=== PATIENT | male | born 1995 | race Caucasian/White ===

== ENCOUNTER 2022-01-06 20:22 | Emergency (ER) | payer OTHER ==
[2022-01-06] MEDS ORDERED: HYDROmorphone 1 MG/ML CARPUJECT IM STA (20:39)
--- NOTE | 2022-01-06 20:42 | ED Physician Documentation ---
History of Present Illness - Stated complaint Stated Complaint: R ANKLE INJ - Chief complaint Chief Complaint: Trauma Ext - Additonal information Additional information: 26-year-old male presents emergency department for evaluation of acute right ankle pain. [place]. In the process of doing so he felt a crack on his lateral malleoli are area. Unable to bear weight since. No history of previous injury. PD PAST MEDICAL HISTORY - Past Medical History Past Medical History: No - Past Surgical History Past Surgical History: No - Present Medications Home Medications: Ambulatory Orders Medication Instructions Recorded Confirmed Ibuprofen [Motrin] 600 mg PO Q6H PRN #30 tab 01/06/22 oxyCODONE [Roxicodone] 5 mg PO TID PRN #15 tablet 01/06/22 - Allergies Allergies/Adverse Reactions: Allergies Allergy/AdvReac Type Severity Reaction Status Date / Time amoxicillin Allergy Unknown Verified 01/06/22 20:29 - Social History Does the pt smoke?: No Smoking Status: Never smoker Does the pt drink ETOH?: Yes ETOH Use: Beer Does the pt have substance abuse?: No - Immunizations Immunizations are current?: Yes - POLST Patient has POLST: No PD ED PE NORMAL - General General: Alert and oriented X 3, No acute distress - Cardiac Cardiac: RRR, No murmur - Extremities Extremities: No deformity, Other (Tenderness of right distal fibular head. Moderate swelling and ecchymosis. Swelling of the medial malleolus. Reduced range of motion secondary to pain. 2+ DP pulse. No pain at the Achilles.). No: No tenderness to palpate Results - Vitals Vitals: Vital Signs - 24 hr 01/06/22 20:26 Temperature 36.0 C L Heart Rate 67 Respiratory 16 Rate Blood Pressure 134/83 H O2 Saturation 96 Oxygen O2 Source Room air - Rads (name of study) right ankle Radiology: Final report received (Unstable ankle fracture with abnormal widening of the interspace between the talus and medial malleolus measuring up to 1.2 cm. Associated distal fibular displaced fracture involving the distal diaphysis) PD MEDICAL DECISION MAKING - ED course Complexity details: considered differential, d/w patient ED course: 26-year-old male presents emergency department for evaluation of acute right ankle pain after falling while wearing roller skates. He has sustained a spiral mid and distal fibular shaft fracture. He is also unstable ankle joint that will require ORIF for reduction. Neurovascularly intact at time of presentation to the emergency department Placed was placed in a sugar tong/posterior splint. CMST preserved post splinting. Patient will follow up with [facility] on Saturday. Will require emergent referral to orthopedics. My narcotic documentation. Departure - Departure Disposition: 01 Home, Self Care Clinical Impression: Unstable right ankle Closed right fibular fracture Qualifiers: Encounter type: initial encounter Fibula location: shaft Fracture morphology: spiral Fracture alignment: displaced Qualified Code(s): S82.441A - Displaced spiral fracture of shaft of right fibula, initial encounter for closed fracture Condition: Stable Instructions: ED Fx Lower Extr Ch Prescriptions: Ibuprofen [Motrin] 600 mg PO Q6H PRN #30 tab PRN Reason: Pain oxyCODONE [Roxicodone] 5 mg PO TID PRN #15 tablet PRN Reason: Pain Comments: You are seen today for pain in your right ankle that occurred after twisting your ankle while rollerskating. Unfortunately you do have a displaced fibula fracture. However the more concerning injury for you is an unstable ankle joint as you have widening between the talus bone and the medial malleolus. This will most certainly require surgery in order to bring your ankle joint into proper alignment. You must see [facility] on Saturday to receive an urgent referral to orthopedics. You are to be nonweightbearing on this foot and leg until cleared by orthopedic surgeon. Your splint must be kept dry, if it gets wet return to the ER for replacement. If at any point you feel that your splint is too tight, you have discoloration of your toes, cold toes develop sudden chest pain or shortness of air please return immediately to the ER. In general I recommend that you elevate the leg is much as possible to reduce swelling and pain. Please take the ibuprofen 3 times a day with food. Your prescriptions have been sent electronically to the [facility] in [place] I am prescribing a short course of narcotic pain medication for you. These are potentially dangerous and addictive medications that should be used carefully. These medications may constipate you. Take an eadx-apr-qdssfhu stool softener (docusate) twice daily with plenty of water while taking these medications. If you go 24 hours without a bowel movement, take [id number] miralax, per package instructions. Do not drink or drive while taking these medications. If you received narcotic or sedating medications while in the emergency department, do not drive for 24 hours. Store this medication in a safe, secure place and out of reach of children. It is a violation of federal law to give or sell this medication to another person or to use in a manner other than prescribed. The ED will not refill narcotic prescriptions, including prescriptions lost or stolen. To dispose of unwanted medications: 1. [facility] at [address] in [place] has a medication drop box. They accept prescription medications (in pill form) Saturday through Saturday 9:00 a.m. to 5:00 p.m. 2. The [facility] [employer] accepts prescription medications (in pill form only) for disposal year round. Call for more information. 3. Contact the [facility] for the next [employer] sponsored prescription drug collection event. , [phone], or [phone]; Note that many narcotic pain relievers also contain Tylenol/acetaminophen. Please ensure that your total dose of acetaminophen from all sources does not exceed 3 g (3000 mg) per day.
[2022-01-06] MEDS ORDERED: oxyCODONE/ACET 5/325 Prepack 4 PO STA (20:56)
--- NOTE | 2022-01-06 21:10 | XRAY Report ---
PROCEDURE: Ankle 3 View RT INDICATIONS: roller skating injury, twisted R ankle, c/o pain TECHNIQUE: 3 views of the ankle were acquired. COMPARISON: None FINDINGS: Bones: No dislocations but there is evidence of instability at the ankle mortise joint which on the straight frontal view shows abnormal widening of the medial malleolus interspace and also a diagonal fracture through the distal diaphysis of the fibula. This fracture is only minimally displaced.. Ank le mortise is normally aligned. No suspicious bony lesions. Soft tissues: No tibiotalar joint effusion. Achilles tendon appears normal. IMPRESSION: Unstable ankle fracture with abnormal widening of the interspace between the talus and t he medial malleolus, measuring up to 1.2 cm. This is associated with a distal fibular minimally displ aced fracture involving the distal diaphysis. Reviewed by: Tiburcio Christianson MD on 01/06/2022 9:09 PM PDT Approved by: Tiburcio Christianson MD on 01/06/2022 9:09 PM PDT Station ID: [id number]
[2022-01-06 21:59] VITALS: BP 123/71
== END 2022-01-06 21:55 | disposition home or self-care (01) ==
LOC: ED 20:22
DX: S82.441A Displaced spiral fracture of shaft of right fibula, initial encounter for closed fracture (principal); W18.30XA Fall on same level, unspecified, initial encounter; Y93.51 Activity, roller skating (inline) and skateboarding
CPT/HCPCS: 73610; 96372; 99281; 99283; J1170

== ENCOUNTER 2023-12-24 21:14 | Emergency (ER) | payer OTHER ==
[2023-12-24 21:36] VITALS: BP 137/93; O2SAT 99
[2023-12-24 22:06] LABS: BASOPHILS # (AUTO) 0.1 10^3/uL (0.0-0.1); BASOPHILS % (AUTO) 0.4 %; EOSINOPHILS # (AUTO) 0.1 10^3/uL (0.0-0.7); EOSINOPHILS % (AUTO) 0.6 %; HCT - HEMATOCRIT 49.5 % (42.0-52.0); HGB - HEMOGLOBIN 16.6 g/dL (14.0-18.0); LYMPHOCYTES # (AUTO) 1.7 10^3/uL (1.5-3.5); LYMPHOCYTES % (AUTO) 11.2 %; MEAN CORPUSCULAR HEMOGLOBIN 29.5 pg (27.0-31.0); MEAN CORPUSCULAR HGB CONC 33.5 g/dL (32.0-36.0); MEAN CORPUSCULAR VOLUME 87.9 fL (80.0-94.0); MEAN PLATELET VOLUME 10.5 fL (7.4-11.4); MONOCYTES # (AUTO) 1.2 10^3/uL (0.0-1.0); MONOCYTES % (AUTO) 7.8 %; NEUTROPHILS # (AUTO) 12.1 10^3/uL (1.5-6.6); NEUTROPHILS % (AUTO) 79.7 %; PLT - PLATELET COUNT 285 10^3/uL (130-450); RED BLOOD COUNT 5.63 10^6/uL (4.70-6.10); RED CELL DISTRIBUTION WIDTH 12.5 % (12.0-15.0); WHITE BLOOD COUNT 15.2 x10^3/uL (4.8-10.8)
[2023-12-24 22:13] LABS: ALBUMIN 4.6 g/dL (3.2-5.5); ALBUMIN/GLOBULIN RATIO 1.6 (1.0-2.2); BILIRUBIN,TOTAL 0.8 mg/dL (0.2-1.0); CREATININE 1.2 mg/dL (0.6-1.3); POTASSIUM 3.6 mmol/L (3.5-4.5); TOTAL PROTEIN 7.5 g/dL (6.4-8.9)
[2023-12-24 22:30] LABS: BILIRUBIN,URINE NEGATIVE (NEGATIVE); GLUCOSE, URINE (UA) NEGATIVE (NEGATIVE); KETONES,URINE (UA) NEGATIVE (NEGATIVE); LEUKOCYTE ESTERASE, URINE NEGATIVE (NEGATIVE); NITRITE,URINE NEGATIVE (NEGATIVE); OCCULT BLOOD,URINE NEGATIVE (NEGATIVE); PROTEIN,URINE NEGATIVE (NEGATIVE); UROBILINOGEN,URINE 0.2 (NORMAL) E.U./dL (NORMAL)
[2023-12-24 22:31] LABS: CLARITY,URINE CLEAR (CLEAR)
--- NOTE | 2023-12-24 23:23 | ED Physician Documentation ---
PD HPI ABD PAIN - Stated complaint Stated Complaint: ABD PX/VOMIT - Chief complaint Chief Complaint: Abd Pain - History obtained from History obtained from: Patient - Additional information Additional information: HPI from patient. Patient planes of sudden onset of generalized abdominal pain, most prominent in the epigastrium and left upper quadrant. Onset at approximately 6 PM while at home preparing food; patient says he had not eaten any of the food yet when the symptoms started. The abdominal pain was also immediately associated with nausea, vomiting. He subsequently also developed diarrhea. Denies fevers, denies history of similar symptoms. No recent antibiotics. Review of Systems Constitutional: denies: Fever GI: reports: Abdominal Pain, Nausea, Vomiting PD PAST MEDICAL HISTORY - Past Medical History Past Medical History: No Cardiovascular: None Respiratory: None Neuro: None Endocrine/Autoimmune: None GI: None : None HEENT: None Psych: None Musculoskeletal: None Derm: None - Past Surgical History Past Surgical History: No - Present Medications Home Medications: Ambulatory Orders Medication Instructions Recorded Confirmed Ondansetron Odt [Zofran Odt] 4 mg TL Q6H PRN #14 tablet 12/25/23 - Allergies Allergies/Adverse Reactions: Allergies Allergy/AdvReac Type Severity Reaction Status Date / Time amoxicillin Allergy Unknown Verified 12/24/23 21:26 - Social History Does the pt smoke?: No Smoking Status: Never smoker Does the pt drink ETOH?: Yes Does the pt have substance abuse?: No - Immunizations Immunizations are current?: Yes - POLST Patient has POLST: No PD ED PE NORMAL - Vitals Vital signs reviewed: Yes - General General: Alert and oriented X 3, No acute distress, Well developed/nourished - HEENT HEENT: Other (tacky mucous membranes) - Cardiac Cardiac: RRR, No murmur - Respiratory Respiratory: No respiratory distress, Clear bilaterally - Abdomen Abdomen: Soft, Non distended, Other (mild TTP LUQ without rebound or guarding) - Derm Derm: Normal color, Warm and dry Results - Vitals Vitals: Oxygen O2 Source Room air - Labs Labs: Laboratory Tests 12/24/23 12/24/23 12/24/23 21:20 21:56 21:56 WBC 15.2 H RBC 5.63 Hgb 16.6 Hct 49.5 MCV 87.9 MCH 29.5 MCHC 33.5 RDW 12.5 Plt Count 285 MPV 10.5 Neut # (Auto) 12.1 H Lymph # (Auto) 1.7 Crook # (Auto) 1.2 H Eos # (Auto) 0.1 Baso # (Auto) 0.1 Absolute Nucleated RBC 0.00 Nucleated RBC % 0.0 Sodium 136 Potassium 3.6 Chloride 102 Carbon Dioxide 26 Anion Gap 8.0 BUN 19 Creatinine 1.2 Estimated GFR (MDRD) 73 L Glucose 115 H Calcium 10.0 Total Bilirubin 0.8 AST 19 ALT 22 Alkaline Phosphatase 73 Total Protein 7.5 Albumin 4.6 Globulin 2.9 Albumin/Globulin Ratio 1.6 Lipase 21 Urine Color YELLOW Urine Clarity CLEAR Urine pH 6.0 Ur Specific [place] 1.025 Urine Protein NEGATIVE Urine Glucose (UA) NEGATIVE Urine Ketones NEGATIVE Urine Occult Blood NEGATIVE Urine Nitrite NEGATIVE Urine Bilirubin NEGATIVE Urine Urobilinogen 0.2 (NORMAL) Ur Leukocyte Esterase NEGATIVE Ur Microscopic Review NOT INDICATED Urine Culture Comments NOT INDICATED PD Medical Decision Making - ED course Complexity details: reviewed results, re-evaluated patient, considered differential, d/w patient ED course: H&P is most suggestive of viral gastroenteritis. He does have leukocytosis with WBC 15.2, but otherwise unremarkable CBC. No concerning findings on ER abdominal panel nor on urinalysis. Tenderness on exam is limited to the left upper quadrant, which would again be consistent with the gastritis component of the suspected gastroenteritis. He has no other significant tenderness on abdominal exam including entirely nontender right lower quadrant; appendicitis at this point is of low suspicion. He is given 1 L normal saline IV as well as 4 mg IV Zofran. With these interventions, he reports feeling better and well enough for discharge home. He is given a take-home pack of Zofran, and I am electronically submitting a prescription for Zofran to the [facility] in [place]. Return precautions are reviewed. He is provided a work note excusing him from work until . Departure - Departure Disposition: Home, Self Care Clinical Impression: Abdominal pain Qualifiers: Abdominal location: generalized Qualified Code(s): R10.84 - Generalized abdominal pain Condition: Good Instructions: ED Diet Vomiting Diarrhea, ED Vomiting Diarrhea Nonspecific Ad Prescriptions: Ondansetron Odt [Zofran Odt] 4 mg TL Q6H PRN #14 tablet PRN Reason: Nausea / Vomiting Comments: The only notable finding on tonight's blood tests is a mildly elevated white blood cell count; as we discussed, this is neither a specific nor concerning finding (it is not elevated to a concerning extent). Based on your symptoms and lack of other abnormalities on blood test (such as liver function tests), I suspect your symptoms are due to a virus causing gastroenteritis. This diagnosis cannot specifically be made on emergency testing, but there are no signs nor symptoms to suggest an alternative diagnosis such as appendicitis. I have electronically submitted a prescription for ondansetron (anti-nausea medication) to the [facility] pharmacy in [place]. Contact your primary care provider in the morning to arrange for next available appointment for reevaluation/follow-up. Forms: Activity restrictions Discharge Date/Time: 12/25/23 00:53
[2023-12-24] MEDS: ONDANSETRON ODT 4 MG Prepack 2 TL PRN (23:50)
[2023-12-24] MEDS: SODIUM CHLORIDE 0.9% 1,000 ML IV STA (23:50)
[2023-12-24] MEDS: ONDANSETRON 4 MG/2 ML VIAL IVP STA (23:50)
== END 2023-12-25 00:53 | disposition home or self-care (01) ==
LOC: ED 21:14
DX: R10.84 Generalized abdominal pain (principal)
CPT/HCPCS: 36415; 80053; 81001; 81003; 83690; 85025; 87086; 96374; 99284